=== PATIENT | female | born 1985 | race Caucasian/White ===

== ENCOUNTER 2017-02-07 18:07 | Outpatient (CLI) | payer MEDICAID ==
[~2017-02-07] VITALS: Ht 170.2 cm; Wt 101.8 kg
[2017-02-07 18:20] VITALS: Ht 170.2 cm; Wt 101.8 kg
[2017-02-07 18:21] VITALS: BP 138/72; PULSE 90; RESP 18
[2017-02-07] MEDS ORDERED: TERBUTALINE 1 MG/ML INJ SC PRN (19:00)
[2017-02-07] MEDS: LACTATED RINGER'S 1,000 ML IV* SCH ×2 (19:55→20:25)
--- NOTE | 2017-02-07 20:07 | RADRPT ---
PROCEDURE: OB ultrasound CLINICAL INDICATION: labor TECHNIQUE: Multiple transverse and longitudinal OB images of the pelvis were obtained. The images were reviewed on a high-resolution PACS workstation. COMPARISON: None FINDINGS: A single live intrauterine is seen. The presentation is vertex. The placenta is grade 2 a nd posterior in location. No evidence of placenta abruption or previa is seen. The heart rate is 148 beats per minute. The amniotic fluid index is 12.4 cm. The cervix is closed measuring 3.6 cm in length. movement 2 tone 2 breathing 2 Amniotic fluid 2 IMPRESSION: Biophysical profile of 12/12. RPTAT: HPNM Physician Leeroy Date Time Electronically viewed and signed by Physician Leeroy on 02/07/2017 19:26 /
--- NOTE | 2017-02-07 20:07 | RADRPT ---
PROCEDURE: US OB. CLINICAL INDICATION: labor TECHNIQUE: Multiple sonographic images of the pelvis were obtained. The images were reviewed on a PACS workstation. COMPARISON: No prior studies are available for comparison. FINDINGS: There is a single viable intrauterine gestation. Cardiac activity is present with 150 beats per min [place]. There is a vertex presentation. Measurements were made in order to determine age. The results are as follows: BPD =8 cm HC =29.1 cm AC =28 cm FL =6.2 cm. Estimated gestational age of approximately 32 weeks 1 day. The estimated date of delivery is 04/03/2017. The EFW = 1896 grams. The placenta is grade 2 and posterior. There is no evidence for an abruption or placenta previa. There are no adnexal masses. IMPRESSION: 1. Single live intrauterine with an estimated gestational age of 32 weeks 1 day. 2. Estimated weight of 1896 g. RPTAT: HPNM Physician Leeroy Date Time Electronically viewed and signed by Physician Leeroy on 02/07/2017 19:28 /
[2017-02-07 20:21] LABS: BASOPHILS % 0.2 % (0.0-2.0); EOSINOPHILS % 0.1 % (0.0-7.0); HEMATOCRIT 33.7 % (37.0-47.0); HEMOGLOBIN 10.7 g/dl (12.0-16.0); LYMPHOCYTES # 1.7 10^3/ul (0.8-2.9); LYMPHOCYTES % 12.8 % (15.0-51.0); MEAN CORPUSCULAR HEMOGLOBIN 24.9 pg (29.0-33.0); MEAN CORPUSCULAR HGB CONC 31.8 g/dl (32.0-37.0); MEAN CORPUSCULAR VOLUME 78.6 fl (82.0-101.0); MEAN PLATELET VOLUME 10.6 fl (7.4-10.4); MONOCYTE # 0.7 10^3/ul (0.3-0.9); MONOCYTES % 5.1 % (0.0-11.0); NEUTROPHIL # 10.7 10^3/ul (1.6-7.5); NEUTROPHILS % 81.6 % (39.0-77.0); PLATELET COUNT 309 10^3/UL (140-415); RED BLOOD COUNT 4.29 10^6/ul (4.20-5.40); RED CELL DISTRIBUTION WIDTH 14.8 % (11.5-14.5); WHITE BLOOD COUNT 13.1 10^3/ul (4.8-10.8)
[2017-02-07 20:39] LABS: ADD UMIC YES; UR ASCORBIC ACID NEGATIVE (NEGATIVE); UR BACTERIA MANY /HPF (NONE SEEN); UR BILIRUBIN (Dip) NEGATIVE (NEGATIVE); UR BLOOD (Dip) 3+ mg/dL (NEGATIVE); UR CLARITY CLOUDY (CLEAR); UR COLOR YELLOW (YELLOW); UR GLUCOSE (Dip) NEGATIVE (NEGATIVE); UR KETONES (Dip) TRACE mg/dL (NEGATIVE); UR LEUKOCYTE ESTERASE (Dip) TRACE Leu/ul (NEGATIVE); UR MUCUS MANY /HPF (NONE SEEN); UR NITRITE (Dip) NEGATIVE (NEGATIVE); UR RBC > 182 /HPF (0-5); UR SPECIFIC GRAVITY (Dip) 1.026 (1.003-1.030); UR SQUAMOUS EPITHELIAL CELL MANY /HPF (FEW); UR TOTAL PROTEIN (Dip) 2+ mg/dl (NEGATIVE); UR UROBILINOGEN (Dip) NEGATIVE (NEGATIVE)
[2017-02-07 20:44] LABS: ALBUMIN 3.8 g/dl (3.3-4.9); ALBUMIN/GLOBULIN RATIO 1.11; BILIRUBIN,INDIRECT 0.3 mg/dl (0-1.1); BILIRUBIN,TOTAL 0.3 mg/dl (0.2-1.3); CALCIUM 9.3 mg/dl (8.4-10.2); CREATININE 0.5 mg/dl (0.44-1.00); TOTAL PROTEIN 7.2 g/dl (6.1-8.1)
[2017-02-07] MEDS ORDERED: FERR256T PO (23:14)
[2017-02-07] MEDS ORDERED: PREN1TAB79 PO (23:14)
--- NOTE | 2017-02-08 02:18 | TRIAGE ---
OB Triage Datetime Report Generated by CPN: 02/08/2017 02:18 Datetime: 02/07/2017 23:00 Stage of : OB Triage Labor Evaluation Frequency: 1.5-7 Monitor Mode: External Duration (sec)2399: 40-80 Quality: Mild Pattern: Normal: <= 5 Contractions in 10 Minutes Resting Tone [place]: Relaxed Heart Rate FHR Baseline Rate: 125 Monitor Mode: External US FHR Baseline Changes: No Baseline Change Variability: Moderate 6-25 bpm Accelerations: 15X15 Decelerations: Variable Category: Category II Pain Assessment Pain Scale: 0 Pain Presence: None/Denies Pain Type: N/A Pain Assessment Comments: Pt denies feeling pain, cramping, or uc's. Datetime: 02/07/2017 22:59 Stage of : OB Triage Assessment Type: Triage Datetime: 02/07/2017 22:52 Stage of : OB Triage Datetime: 02/07/2017 22:50 Stage of : OB Triage Datetime: 02/07/2017 22:42 Stage of : OB Triage Datetime: 02/07/2017 22:40 Stage of : OB Triage Datetime: 02/07/2017 22:00 Stage of : OB Triage Labor Evaluation Frequency: 1.5-10 Monitor Mode: External Duration (sec)2399: 40-80 Quality: Mild Pattern: Normal: <= 5 Contractions in 10 Minutes Resting Tone [place]: Relaxed Heart Rate FHR Baseline Rate: 125 Monitor Mode: External US Variability: Moderate 6-25 bpm Accelerations: 15X15 Decelerations: None Category: Category I Datetime: 02/07/2017 21:47 Stage of : OB Triage Datetime: 02/07/2017 21:45 Stage of : OB Triage Datetime: 02/07/2017 21:43 Stage of : OB Triage Datetime: 02/07/2017 21:01 Stage of : OB Triage Datetime: 02/07/2017 21:00 Stage of : OB Triage Labor Evaluation Frequency: Irregular Monitor Mode: External Duration (sec)2399: 40-70 Quality: Mild Pattern: Normal: <= 5 Contractions in 10 Minutes Resting Tone [place]: Relaxed Heart Rate FHR Baseline Rate: 130 Monitor Mode: External US FHR Baseline Changes: No Baseline Change Variability: Moderate 6-25 bpm Accelerations: 15X15 Decelerations: None Comments: Difficulty monitoring due to excessive movt. Datetime: 02/07/2017 20:34 Stage of : OB Triage Datetime: 02/07/2017 20:30 Stage of : OB Triage Datetime: 02/07/2017 20:00 Stage of : OB Triage Labor Evaluation Frequency: Irregular Monitor Mode: External Duration (sec)2399: 40-80 Quality: Mild Pattern: Normal: <= 5 Contractions in 10 Minutes Resting Tone [place]: Relaxed Heart Rate FHR Baseline Rate: 130 Monitor Mode: External US Variability: Moderate 6-25 bpm Accelerations: 15X15 Decelerations: None Datetime: 02/07/2017 19:59 Stage of : OB Triage Assessment Type: Triage Maternal Assessment Level of Consciousness: Fully Conscious DTR's/Clonus: DTRs 2+; No Clonus Headache: Denies Blurred Vision: No Respiratory Effort: Unlabored; Regular Rhythm; Equal Expansion Breath Sounds, Left: Clear and Equal Breath Sounds, Right: Clear and Equal Nausea/Vomiting: Hx of Nausea/Vomiting (Annotations: Reports earlier today but denies at this time ) RUQ Epigastric Pain: Denies Lower Extremities Edema: None Degree: None Upper Extremities Edema: None Degree: None Facial Edema: None Temperature Route: Oral Fall Risk Assessment History of Falling: (0) No Secondary Diagnosis: (0) No Ambulatory Aid: (0) Bedrest/Nurse Assist IV Therapy: (0) No Gait: (0) Normal/Bedrest/Immobile Mental Status: (0) Oriented to Own Ability Fall Score: 0 Fall Risk Score Definition: No Risk: No action required Pain Assessment Pain Scale: 2 Pain Presence: Intermittent Pain Type: Cramping Pain Location: Abdomen; Back Pain Relief Measures: Comfort Measures Pain Assessment Comments: Pt states pain is much less now than earlier today Datetime: 02/07/2017 19:54 Stage of : OB Triage Heart Rate FHR Baseline Rate: 140 Monitor Mode: External US Datetime: 02/07/2017 18:17 Assessment Type: Triage Maternal Assessment Level of Consciousness: Fully Conscious DTR's/Clonus: DTRs 2+; No Clonus Headache: Denies Blurred Vision: No Respiratory Effort: Unlabored; Regular Rhythm; Equal Expansion Breath Sounds, Left: Clear and Equal Breath Sounds, Right: Clear and Equal Nausea/Vomiting: Denies RUQ Epigastric Pain: Denies Lower Extremities Edema: None Degree: None Upper Extremities Edema: None Degree: None Facial Edema: None Fall Risk Assessment History of Falling: (0) No Secondary Diagnosis: (0) No Ambulatory Aid: (0) Bedrest/Nurse Assist IV Therapy: (0) No Gait: (0) Normal/Bedrest/Immobile Mental Status: (0) Oriented to Own Ability Fall Score: 0 Fall Risk Score Definition: No Risk: No action required Datetime: 02/07/2017 18:14 Monitor Mode: External Monitor Mode: External US Datetime: 02/07/2017 18:12 Time of Arrival: 02/07/2017 18:01 EGA: 32.1 Arrived By: Ambulatory Arrived From: Home Chief Complaint: PT HERE C/O ABD PAIN Movement: Present Contractions: Irregular Rupture of Membranes: Denies Vaginal Discharge: Denies Recent Sexual Intercouse: Denies Abdominal Trauma: Not Applicable Time Provider Notified: 02/07/2017 18:43 Provider Notified: FABIAN Initial Plan: EFM/SVE/IV HYDRATION/CBC/CMP/UAC/S/U/S CVL/EFW/BPP/TERB X 2 PRN (Annotations: Data s tored by CPN on behalf of user)
--- NOTE | 2017-02-08 03:22 | PN ---
Triage Information Date/Time February 08, 2017 Reason for visit: Weeks of Gestation 32 weeks and 1 day /Para 3 para 1 Diabetes: none Hypertention: none Additional information 32-year-old with IUP at 32 weeks and 1 day presented with complaint of uterine contractions. She had care with Dr. Peña. She denies any leaking of fluid or vaginal bleeding or decreased movement. Objective Vital Signs Date Time Temp Pulse Resp B/P Pulse Ox O2 Delivery O2 Flow Rate FiO2 02/07/17 18:21 99.1 90 18 138/72 97 Room Air Intake and Output 02/07/17 02/07/17 02/08/17 15:00 23:00 07:00 Intake Total 1500 ml Balance 1500 ml Heart Rate: 130's Contractions: < 5 Minutes Apart Exam General appearance: Alert and oriented 4. Patient appears to be in mild-to- moderate distress. Abdomen: Soft, gravid, fundal height consistent with gestational age. No rebound tenderness, no guarding or rigidity NST: Category 1. Contractions initially less than 5 minutes and then decrease in intensity and frequency with IV hydration Results/Medications Result Diagram: 02/07/17195402/07/171954 Results 24 hrs Laboratory Tests Test 02/07/17 19:55 White Blood Count 13.1 H Red Blood Count 4.29 Hemoglobin 10.7 L Hematocrit 33.7 L Mean Corpuscular Volume 78.6 L Mean Corpuscular Hemoglobin 24.9 L Mean Corpuscular Hemoglobin Concent 31.8 L Red Cell Distribution Width 14.8 H Platelet Count 309 Mean Platelet Volume 10.6 H Neutrophils % 81.6 H Lymphocytes % 12.8 L Monocytes % 5.1 Eosinophils % 0.1 Basophils % 0.2 Nucleated Red Blood Cells % 0.0 Neutrophils # 10.7 H Lymphocytes # 1.7 Monocytes # 0.7 Eosinophils # 0.0 Basophils # 0.0 Nucleated Red Blood Cells # 0.0 Urine Color YELLOW Urine Clarity CLOUDY A Urine pH 5.0 Urine Specific [place] 1.026 Urine Ketones TRACE A Urine Nitrite NEGATIVE Urine Bilirubin NEGATIVE Urine Urobilinogen NEGATIVE Urine Leukocyte Esterase TRACE A Urine Microscopic RBC > 182 H Urine Microscopic WBC 11 H Urine Squamous Epithelial Cells MANY A Urine Bacteria MANY A Urine Mucus MANY A Urine Hemoglobin 3+ H Urine Glucose NEGATIVE Urine Total Protein 2+ H Sodium Level 139 Potassium Level 4.0 Chloride Level 108 Carbon Dioxide Level 21 Anion Gap 14 Blood Urea Nitrogen 6 L Creatinine 0.50 Glucose Level 99 Calcium Level 9.3 Total Bilirubin 0.3 Direct Bilirubin 0.00 Indirect Bilirubin 0.3 Aspartate Amino Transf (AST/SGOT) 17 Alanine Aminotransferase (ALT/SGPT) 23 Alkaline Phosphatase 142 H Total Protein 7.2 Albumin 3.8 Globulin 3.40 H Albumin/Globulin Ratio 1.11 Imaging Results PROCEDURE: OB ultrasound CLINICAL INDICATION: labor TECHNIQUE: Multiple transverse and longitudinal OB images of the pelvis were obtained. The images were reviewed on a high-resolution PACS workstation. COMPARISON: None FINDINGS: A single live intrauterine is seen. The presentation is vertex. The placenta is grade 2 and posterior in location. No evidence of placenta abruption or previa is seen. The heart rate is 148 beats per minute. The amniotic fluid index is 12.4 cm. The cervix is closed measuring 3.6 cm in length. movement 2 tone 2 breathing 2 Amniotic fluid 2 IMPRESSION: Biophysical profile of 12/12. PROCEDURE: US OB. CLINICAL INDICATION: labor TECHNIQUE: Multiple sonographic images of the pelvis were obtained. The images were reviewed on a PACS workstation. COMPARISON: No prior studies are available for comparison. FINDINGS: There is a single viable intrauterine gestation. Cardiac activity is present with 150 beats per minute. There is a vertex presentation. Measurements were made in order to determine age. The results are as follows: BPD = 8 cm HC = 29.1 cm AC = 28 cm FL = 6.2 cm. Estimated gestational age of approximately 32 weeks 1 day. The estimated date of delivery is 04/03/2017. The EFW = 1896 grams. The placenta is grade 2 and posterior. There is no evidence for an abruption or placenta previa. There are no adnexal masses. IMPRESSION: 1. Single live intrauterine with an estimated gestational age of 32 weeks 1 day. 2. Estimated weight of 1896 g. RPTAT: HPNM Disposition: Discharge Assessment/Plan IUP at 32 weeks and 1 day Uterine contractions. Received IV hydration. Continue to have recurrence of irritability and contractions She was advised by her primary OB Dr. Peña to be admitted to the hospital for close observation and monitoring, and possible tocolysis if she continues to have contraction however patient declined Patient desired to sign AMA and leave despite of instruction and counseling regarding risk of labor. Stated that she has an appointment tomorrow with her OB office. Primary OB Dr. Peña was notified and is aware CONNER JENKINS MD Feb 08, 2017 03:22
== END 2017-02-07 23:15 | disposition left against medical advice (07) ==
LOC: OBT 18:07 → L-D 18:08 → OBT 23:15
PROVIDERS: ATTEND Obstetrics & Gynecology
DX: O62.9 Abnormality of forces of labor, unspecified (principal); Z3A.32 32 weeks gestation of pregnancy
CPT/HCPCS: 36415; 76815; 76817; 76818; 80053; 81001; 85025; 96360; 96361; J7120; Z7500; G0463; J3105

== ENCOUNTER 2017-02-22 18:53 | Outpatient (CLI) | payer MEDICAID ==
[~2017-02-22] VITALS: Ht 172.7 cm; Wt 102.7 kg
[~2017-02-22 18:53] MED LIST: FERR256T PO; PREN1TAB79 PO
[2017-02-22 19:44] VITALS: BP 120/71; PULSE 79; RESP 18
[2017-02-22] MEDS ORDERED: LACTATED RINGER'S 1,000 ML IV* SCH (20:30)
[2017-02-22 20:57] LABS: PLATELET COUNT 312 10^3/UL (140-415)
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
[2017-02-22 21:14] LABS: ALBUMIN 3.2 g/dl (3.3-4.9); ALBUMIN/GLOBULIN RATIO 0.88; BILIRUBIN,INDIRECT 0.2 mg/dl (0-1.1); BILIRUBIN,TOTAL 0.2 mg/dl (0.2-1.3); CALCIUM 9.4 mg/dl (8.4-10.2); CREATININE 0.56 mg/dl (0.44-1.00); POTASSIUM 4.4 mmol/L (3.5-5.1); TOTAL PROTEIN 6.8 g/dl (6.1-8.1)
[2017-02-22 21:15] LABS: INR 0.94; PROTIME 12.6 Sec (12.2-14.2)
[2017-02-22 21:16] LABS: PARTIAL THROMBOPLASTIN TIME 28.7 Sec (25.0-35.0)
[2017-02-22 21:34] LABS: D-DIMER 663.85 ng/ml (<460)
[2017-02-22 21:35] LABS: FIBRIN SPLIT PRODUCT <10 ug/ml (<10)
[2017-02-22 23:06] LABS: THROMBIN TIME 14.5 SEC (13.8-19.1)
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
== END 2017-02-22 22:49 | disposition left against medical advice (07) ==
LOC: OBT 18:53 → L-D 18:55 → OBT 22:49
PROVIDERS: ATTEND Obstetrics & Gynecology
DX: Z53.21 Procedure and treatment not carried out due to patient leaving prior to being seen by health care provider (principal)
CPT/HCPCS: 36415; 76815; 76817; 76818; 80053; 85049; 85362; 85378; 85384; 85460; 85610; 85670; 85730; 86850; 86900; 86901; J7120; Z7500; G0463

== ENCOUNTER 2017-04-05 07:35 | Inpatient (IN) | payer MEDICAID ==
[2017-04-05] VITALS (7 sets, daily range): BP systolic 124–158; BP diastolic 65–88; PULSE 99–116; RESP 16–21; Ht 170.2 cm; Wt 105.4 kg
[~2017-04-05] VITALS: Ht 170.2 cm; Wt 105.4 kg
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
[2017-04-05] MEDS ORDERED: LACTATED RINGER'S 1,000 ML IV SCH (08:12)
[2017-04-05] MEDS ORDERED: IBUPROFEN 600 MG TAB PO PRN ×2 (08:30→19:30)
[2017-04-05] MEDS ORDERED: OXYTOCIN 30 UNITS/LR 500 ML IV PRN ×2 (08:30→19:30)
[2017-04-05] MEDS ORDERED: LIDOCAINE 1% (MPF) 30 ML INJ INJ PRN (08:30)
[2017-04-05] MEDS ORDERED: AMPICILLIN 2 GM/NS (PMX) 100 ML IV ONE (08:30)
[2017-04-05] MEDS ORDERED: METHYLERGONOVINE 0.2 MG INJ IM PRN ×2 (08:30→19:30)
[2017-04-05] MEDS ORDERED: OXYTOCIN 30 UNITS/LR 500 ML IV SCH ×2 (08:30→14:00)
[2017-04-05] MEDS ORDERED: MISOPROSTOL 200 MCG TAB PR PRN ×2 (08:30→19:30)
[2017-04-05] MEDS ORDERED: CARBOPROST 250 MCG INJ IM PRN ×2 (08:30→19:30)
[2017-04-05] MEDS ORDERED: BUTORPHANOL 2 MG INJ IV PRN (08:30)
[2017-04-05 10:01] LABS: BASOPHILS % 0.2 % (0.0-2.0); EOSINOPHILS % 0.2 % (0.0-7.0); HEMATOCRIT 32.5 % (37.0-47.0); HEMOGLOBIN 10.3 g/dl (12.0-16.0); LYMPHOCYTES # 2.3 10^3/ul (0.8-2.9); LYMPHOCYTES % 15.2 % (15.0-51.0); MEAN CORPUSCULAR HEMOGLOBIN 23.4 pg (29.0-33.0); MEAN CORPUSCULAR HGB CONC 31.7 g/dl (32.0-37.0); MEAN CORPUSCULAR VOLUME 73.9 fl (82.0-101.0); MEAN PLATELET VOLUME 10.3 fl (7.4-10.4); MONOCYTE # 0.8 10^3/ul (0.3-0.9); MONOCYTES % 5.4 % (0.0-11.0); NEUTROPHIL # 11.7 10^3/ul (1.6-7.5); NEUTROPHILS % 78.6 % (39.0-77.0); PLATELET COUNT 347 10^3/UL (140-415); RED CELL DISTRIBUTION WIDTH 17.1 % (11.5-14.5); WHITE BLOOD COUNT 14.9 10^3/ul (4.8-10.8)
[2017-04-05 10:29] LABS: ALBUMIN 3.5 g/dl (3.3-4.9); ALBUMIN/GLOBULIN RATIO 1.09; BILIRUBIN,INDIRECT 0.2 mg/dl (0-1.1); BILIRUBIN,TOTAL 0.2 mg/dl (0.2-1.3); CALCIUM 9.1 mg/dl (8.4-10.2); CREATININE 0.49 mg/dl (0.44-1.00); POTASSIUM 4.1 mmol/L (3.5-5.1); TOTAL PROTEIN 6.7 g/dl (6.1-8.1)
[2017-04-05 10:36] LABS: INR 0.97; PARTIAL THROMBOPLASTIN TIME 27.9 Sec (25.0-35.0); PROTIME 12.9 Sec (12.2-14.2)
[2017-04-05] MEDS ORDERED: AMPICILLIN 1 GM/NS (PMX) 50 ML IV SCH (12:30)
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
[2017-04-05] MEDS ORDERED: MAGNESIUM SULFATE 4 GM/100 ML 100 ML IVPB ONE (17:00)
[2017-04-05] MEDS ORDERED: MAGNESIUM SULFATE 4 GM/100 ML 100 ML ONE (17:03)
[2017-04-05] MEDS ORDERED: MAGNESIUM SULFATE 20 GM/500 ML 500 ML IV ONE (17:04)
[2017-04-05] MEDS: MAGNESIUM SULFATE 20 GM/500 ML 500 ML IV SCH (17:31)
[2017-04-05] MEDS: OXYTOCIN 30 UNITS/LR 500 ML IV SCH ×4 (19:26→23:32)
[2017-04-05] MEDS ORDERED: LANOLIN 7 GM TUBE TOP PRN (19:30)
[2017-04-05] MEDS ORDERED: BENZOCAINE 20% 56 ML SPRAY TOP PRN (19:30)
[2017-04-05] MEDS ORDERED: WITCH HAZEL/GLYCERIN PAD PR PRN (19:30)
[2017-04-05] MEDS ORDERED: OXYCODONE/ASPIRIN (4.88/325) TAB PO PRN ×2 (19:30)
[2017-04-05] MEDS ORDERED: SENNA/DOCUSATE NA (8.6MG/50MG) TAB PO PRN (19:30)
[2017-04-05] MEDS ORDERED: ACETAMINOPHEN 500 MG TAB PO PRN (19:30)
[2017-04-05] MEDS ORDERED: DIBUCAINE 1% 30 GM OINT PR PRN (19:30)
--- NOTE | 2017-04-05 20:21 | LDN ---
Date/Time of Note Date/Time of Note DATE: 04/05/17 TIME: 20:14 Delivery Summary April 05, 2017 This patient is 31 years old 3 para 1 1 with estimated date of confinement of April 09, 2017 which makes her 39 weeks and 3 days. She came today to [facility] labor delivery room in active labor 3 hours later had rupture membrane made advanced to complete dilatation and delivered spontaneously a male baby 8 pounds and 4 ounces with score of 9 and 1 minute 9 in 5 minutes the middle bowel loss was about 300 cc for the first degree laceration was repaired and patient was transferred to the recovery room in stable condition Weeks of Gestation 39 weeks and 3 days Placenta Delivered: Spontaneously Episiotomy: No Indication for episiotomy Laboratory Tests Test 04/05/17 09:30 White Blood Count 14.910^3/ul Red Blood Count 4.4010^6/ul Hemoglobin 10.3g/dl Hematocrit 32.5% Mean Corpuscular Volume 73.9fl Mean Corpuscular Hemoglobin 23.4pg Mean Corpuscular Hemoglobin Concent 31.7g/dl Red Cell Distribution Width 17.1% Platelet Count 10362^3/UL Mean Platelet Volume 10.3fl Neutrophils % 78.6% Lymphocytes % 15.2% Monocytes % 5.4% Eosinophils % 0.2% Basophils % 0.2% Nucleated Red Blood Cells % 0.0/100WBC Neutrophils # 11.710^3/ul Lymphocytes # 2.310^3/ul Monocytes # 0.810^3/ul Eosinophils # 0.010^3/ul Basophils # 0.010^3/ul Nucleated Red Blood Cells # 0.010^3/ul Prothrombin Time 12.9Sec Prothrombin Time Ratio 1.0 INR International Normalized Ratio 0.97 Activated Partial Thromboplast Time 27.9Sec Fibrinogen 581.0mg/dl Sodium Level 140mmol/L Potassium Level 4.1mmol/L Chloride Level 108mmol/L Carbon Dioxide Level 21mmol/L Anion Gap 15 Blood Urea Nitrogen 8mg/dl Creatinine 0.49mg/dl Glucose Level 83mg/dl Uric Acid 5.0mg/dl Calcium Level 9.1mg/dl Total Bilirubin 0.2mg/dl Direct Bilirubin 0.00mg/dl Indirect Bilirubin 0.2mg/dl Gamma Glutamyl Transpeptidase < 10IU/L Aspartate Amino Transf (AST/SGOT) 17IU/L Alanine Aminotransferase (ALT/SGPT) 23IU/L Alkaline Phosphatase 246IU/L Total Protein 6.7g/dl Albumin 3.5g/dl Globulin 3.20g/dl Albumin/Globulin Ratio 1.09 Hepatitis B Surface Antigen NEGATIVE Current Medications Medications (Trade) Dose Ordered Sig/Liliam Route PRN Reason Start Time Stop Time Status Last Admin Dose Admin Lactated Ringer's 1,000 ml @ 125 mls/hr Q8H IV 04/05/17 08:12 04/05/17 19:28 DC 04/05/17 09:51 Ampicillin 100 ml @ 100 mls/hr ONCE ONCE IV 04/05/17 08:30 04/05/17 09:29 DC 04/05/17 09:58 Ampicillin (Ampicillin 1 Gm/ NS (Pmx)) 50 ml @ 100 mls/hr Q4H IV 04/05/17 12:30 04/05/17 19:28 DC 04/05/17 14:01 Butorphanol Tartrate (Stadol) 2 mg Q2H PRN IV PAIN 04/05/17 08:30 04/05/17 19:28 DC 04/05/17 15:06 Lidocaine 30 ml 30 ml ONCE PRN INJ EPISIOTOMY/TEARING 04/05/17 08:30 04/05/17 19:28 DC Oxytocin/Lactated Ringer's 500 ml @ 125 mls/hr ONCE IV 04/05/17 08:30 04/05/17 19:28 DC 04/05/17 17:13 Ibuprofen 600 mg 600 mg ONCE PRN PO Mild Pain (Pain Score 1-3) 04/05/17 08:30 04/05/17 19:28 DC 04/05/17 17:18 Oxytocin/Lactated Ringer's 500 ml @ 0 mls/hr ONCE PRN IV For Hemorrhage Management 04/05/17 08:30 04/05/17 19:28 DC Methylergonovine Maleate (Methergine) 0.2 mg ONCE PRN IM VAGINAL BLEEDING 04/05/17 08:30 04/05/17 19:28 DC Carboprost Tromethamine (Hemabate) 250 mcg ONCE PRN IM VAGINAL BLEEDING 04/05/17 08:30 04/05/17 19:28 DC Misoprostol 1000 mcg 1,000 mcg ONCE PRN MO VAGINAL BLEEDING 04/05/17 08:30 04/05/17 19:29 DC Oxytocin/Lactated Ringer's 500 ml @ 0 mls/hr Q0M IV 04/05/17 14:00 04/05/17 19:29 DC Magnesium Sulfate 100 ml @ 200 mls/hr ONCE ONCE IVPB 04/05/17 17:00 04/05/17 17:29 DC 04/05/17 17:11 Magnesium Sulfate 500 ml @ 50 mls/hr Q10H IV 04/05/17 17:00 04/05/17 17:31 Magnesium Sulfate 100 ml @ ud STK-MED ONCE .ROUTE 04/05/17 17:03 04/05/17 17:04 DC Magnesium Sulfate 500 ml @ ud STK-MED ONCE IV 04/05/17 17:04 04/05/17 17:05 DC Oxytocin/Lactated Ringer's 500 ml @ 125 mls/hr Q4H IV 04/05/17 19:26 04/06/17 03:25 Oxycodone/Aspirin (Percodan) 1 tab Q3H PRN PO PAIN LEVEL 1-5 04/05/17 19:30 Oxycodone/Aspirin (Percodan) 2 tab Q3H PRN PO PAIN LEVEL 6-10 04/05/17 19:30 Senna/Docusate Sodium (Senokot-S) 1 tab BID PRN PO CONSTIPATION 04/05/17 19:30 Witch Sue/ Glycerin (Tucks Pads) 1 pad BEDSIDE MEDICATION PRN MO HEMORRHOID/EPISIOTMY PAIN 04/05/17 19:30 Benzocaine (Dermoplast [place]) 1 spray BEDSIDE MEDICATION PRN TOP HEMORRHOID/EPISIOTMY PAIN 04/05/17 19:30 Dibucaine (Nupercainal) 1 applic BEDSIDE MEDICATION PRN MO HEMORRHOID/EPISIOTMY PAIN 04/05/17 19:30 Lanolin (Ixu-M-Moarrc) 1 applic BEDSIDE MEDICATION PRN TOP BEDSIDE FOR [place] TO NIPPLES 04/05/17 19:30 Diphtheria/ Tetanus/Acell Pertussis 0.5 ml 0.5 ml ONCE ONCE IM* 04/07/17 09:00 04/07/17 09:01 Oxytocin/Lactated Ringer's 500 ml @ 0 mls/hr ONCE PRN IV For Hemorrhage Management 04/05/17 19:30 Methylergonovine Maleate (Methergine) 0.2 mg ONCE PRN IM VAGINAL BLEEDING 04/05/17 19:30 Carboprost Tromethamine (Hemabate) 250 mcg ONCE PRN IM VAGINAL BLEEDING 04/05/17 19:30 Misoprostol 1000 mcg 1,000 mcg ONCE PRN MO VAGINAL BLEEDING 04/05/17 19:30 Oxytocin/Lactated Ringer's 500 ml @ 125 mls/hr Q4H IV 04/05/17 19:26 Ibuprofen (Motrin) 600 mg Q6H PRN PO PAIN 04/05/17 19:30 Acetaminophen (Tylenol Tab) 500 mg Q6H PRN PO PAIN AND OR ELEVATED TEMP 04/05/17 19:30 Perineal laceration: 1 Anesthesia type: Local Estimated blood loss: 300 Sponge & Needle done & correct: Yes All needle counts correct: Yes Any foreign bodies felt in the: No Problems: Infant Delivery Information Sex Infant Sex: male Apgars 1 Minute: 9 5 Minute: 9 Suctioning Nose & mouth suctioned at jessica: Yes Delee suction performed: No Umbilical Cord Umbilical cord with: 3 Vessels Cord Blood was obtained: Yes Mother & Baby Disposition Disposition Mom & Baby to Maternity; Good: Yes Mom transferred to: Med/Surg Baby to NICU: No YAMILETH VALDERRAMA MD Apr 05, 2017 20:21
[2017-04-06] VITALS (17 sets, daily range): BP systolic 114–167; BP diastolic 66–96; PULSE 90–103; RESP 16–21
[2017-04-06] MEDS: MAGNESIUM SULFATE 20 GM/500 ML 500 ML IV SCH ×2 (02:10→13:06)
[2017-04-06] MEDS: OXYTOCIN 30 UNITS/LR 500 ML IV SCH ×2 (03:26→06:12)
[2017-04-06 08:21] LABS: BASOPHIL # 0.1 10^3/ul (0.0-0.1); BASOPHILS % 0.3 % (0.0-2.0); EOSINOPHILS % 0.2 % (0.0-7.0); HEMATOCRIT 25.8 % (37.0-47.0); HEMOGLOBIN 8.2 g/dl (12.0-16.0); LYMPHOCYTES # 2.7 10^3/ul (0.8-2.9); LYMPHOCYTES % 15.4 % (15.0-51.0); MEAN CORPUSCULAR HEMOGLOBIN 23.7 pg (29.0-33.0); MEAN CORPUSCULAR HGB CONC 31.8 g/dl (32.0-37.0); MEAN CORPUSCULAR VOLUME 74.6 fl (82.0-101.0); MEAN PLATELET VOLUME 10.6 fl (7.4-10.4); MONOCYTES % 5.9 % (0.0-11.0); NEUTROPHIL # 13.4 10^3/ul (1.6-7.5); NEUTROPHILS % 77.7 % (39.0-77.0); PLATELET COUNT 299 10^3/UL (140-415); RED BLOOD COUNT 3.46 10^6/ul (4.20-5.40); RED CELL DISTRIBUTION WIDTH 17.7 % (11.5-14.5); WHITE BLOOD COUNT 17.3 10^3/ul (4.8-10.8)
[2017-04-06] MEDS: LABETALOL 200 MG TAB PO SCH ×2 (11:09→21:00)
[2017-04-06 12:14] LABS: CALCIUM 7.5 mg/dl (8.4-10.2); CREATININE 0.5 mg/dl (0.44-1.00); POTASSIUM 3.9 mmol/L (3.5-5.1)
[2017-04-07] VITALS: BP 131/78; PULSE 103; RESP 18
[2017-04-07 04:00] VITALS: BP 118/65; PULSE 87; RESP 18
[2017-04-07 08:00] VITALS: BP 132/75; PULSE 101; RESP 19
[2017-04-07 08:23] LABS: BASOPHILS % 0.2 % (0.0-2.0); EOSINOPHILS # 0.1 10^3/ul (0.0-0.5); EOSINOPHILS % 0.9 % (0.0-7.0); HEMATOCRIT 25.9 % (37.0-47.0); HEMOGLOBIN 8.1 g/dl (12.0-16.0); LYMPHOCYTES # 2.8 10^3/ul (0.8-2.9); LYMPHOCYTES % 20.6 % (15.0-51.0); MEAN CORPUSCULAR HEMOGLOBIN 23.3 pg (29.0-33.0); MEAN CORPUSCULAR HGB CONC 31.3 g/dl (32.0-37.0); MEAN CORPUSCULAR VOLUME 74.6 fl (82.0-101.0); MEAN PLATELET VOLUME 10.2 fl (7.4-10.4); MONOCYTE # 0.8 10^3/ul (0.3-0.9); MONOCYTES % 5.9 % (0.0-11.0); NEUTROPHIL # 9.7 10^3/ul (1.6-7.5); PLATELET COUNT 305 10^3/UL (140-415); RED BLOOD COUNT 3.47 10^6/ul (4.20-5.40); RED CELL DISTRIBUTION WIDTH 17.9 % (11.5-14.5); WHITE BLOOD COUNT 13.4 10^3/ul (4.8-10.8)
[2017-04-07] MEDS: LABETALOL 200 MG TAB PO SCH (08:58)
[2017-04-07] MEDS ORDERED: DIPHTH/TET/ACEL PERTUSS (ADULT) 0.5 ML VIAL IM* ONE (09:00)
== END 2017-04-07 16:15 | disposition home or self-care (01) | DRG 775 ==
LOC: L-D 07:35 → OBT 07:35 → L-D 08:06 → OBT 08:16 → L-D 09:00 → PP1 18:10
PROVIDERS: ADMIT Obstetrics & Gynecology; ATTEND Obstetrics & Gynecology
PROC: 10E0XZZ Delivery of Products of Conception, External Approach (ICD-10-PCS; principal; 2017-04-05)
PROC: 0HQ9XZZ Repair Perineum Skin, External Approach (ICD-10-PCS; 2017-04-05)
DX: O70.9 Perineal laceration during delivery, unspecified (principal); Z37.0 Single live birth; Z3A.39 39 weeks gestation of pregnancy
CPT/HCPCS: 76815; 80048; 80053; 82977; 83735; 84560; 85025; 85384; 85610; 85730; 86592; 86900; 86901; 87340; 90715; G0463; J0290; J0595; J2590; J3475; J7120

== ENCOUNTER 2017-09-03 08:03 | Emergency (ER) | END 2017-09-03 09:08 | disposition home or self-care (01) ==

== ENCOUNTER 2017-09-05 08:46 | Emergency (ER) | END 2017-09-05 09:46 | disposition home or self-care (01) ==